=== PATIENT | male | born 1985 | race Caucasian/White ===

== ENCOUNTER 2016-09-15 15:45 | Emergency (ER) | payer MEDICAID ==
[2016-09-15] MEDS ORDERED: Sodium Chloride 0.9% 1,000 ML IV ONE (16:05)
[2016-09-15] MEDS ORDERED: Morphine Sulfate 4 mg/mL 1mL Syr IVP ONE (16:06)
--- NOTE | 2016-09-15 16:07 | ED Physician Chart ---
Chief Complaint/HPI - Patient Information Date Seen:: 09/15/16 Time Seen:: 16:02 Chief Complaint:: ACUTE HEADACHE STARTED ABOUT 1 PM History of Present Illness:: Patient states he had acute onset of a generalized headache at 1 PM today. Initially the pain was occipital and then it migrated to the frontal sinus area. Patient denies any recent head injury. The patient has identical headaches that started when he was 9 years old. Since then he has had the same headaches at about 6 month intervals. Patient has had no recent fever, chills or diaphoresis. The headache was accompanied by nausea and 3 episodes of vomiting. She denies any abdominal pain. The patient sees flashing lights they come on just prior to the headache. He rates the severity of the pain as a 9/10 and he describes the pain as throbbing. No motor or sensory complaints. Historian:: Patient Review of Systems - Review of Systems General/Constitutional: No fever, No chills, No diaphoresis, No edema Skin: No skin lesions, No rash, No bruising Head: Headache, No light-headedness Eyes: No loss of vision, No diplopia, Other (patient gets flashing lights prior to the headache.) ENT: No earache, No sore throat, No tinnitus Neck: No neck pain, No stiffness, Mass noted Cardio Vascular: No chest pain, No palpitations, No edema Pulmonary: No SOB, No cough, No sputum, Other (no hemoptysis.) GI: Nausea, Vomiting (3 prior to arrival at the hospital.) G/U: No dysuria, No frequency, No hematuria Musculoskeletal: No bone or joint pain, No back pain, No muscle pain Endocrine: No polyuria, No polydipsia Psychiatric: No prior psych history, No depression, No anxiety, No suicidal ideation Hematopoietic: No bruising, No lymphadenopathy Allergic/Immuno: No urticaria, No angioedema Neurological: No syncope, No weakness, No headache, No seizure, No vertigo Past Medical History - Past Medical History Past Medical History: Other (history of migraine headaches.) Social History: Non Smoker (occasional alcohol use. No use of illicit drugs. and lives with his family.), Employed Family Medical History - Family Member Mother History Unknown: Yes Physical Exam - Physical Examination General/Constitutional: Awake, Well-developed, well-nourished, Alert, Non-toxic appearing, Ambulatory Head: Atraumatic Eyes: Lids, conjuctiva normal, PERRL, EOMI Other Eyes comments:: No retinal hemorrhages or exudates. Sharp disc margins. Skin: No rash, No skin lesions, No ecchymosis, Well hydrated, No lymphadenopathy ENMT: External ears, nose nl, Lips, teeth, gums nl, Oropharynx nl, Tonsils nl Other ENMT comments:: No facial asymmetry. The tongue protrudes in the midline. Neck: Nontender, Full ROM w/o pain, No JVD, No nuchal rigidity, No mass, No stridor Respiratory: Nl effort/Exclusion, Clear to Auscultation, No Wheeze/Rhonchi/Rales Cardio Vascular: RRR, No murmur, gallop, rubs, NL S1 S2 Other Cardio Vascular comments:: Pulses all 4 extremities. GI: No tenderness/rebounding/guarding, No organomegaly, No hernia, Normal BS's, Nondistended, No mass/bruits, No McBurney tenderness : No CVA tenderness, No discharge Extremities: No tenderness or effusion, Full ROM, normal strength in all extremities, No edema, Normal digits & nails Other Extremities comments:: Excellent strength in all 4 extremities. Neuro/Psych: Alert/oriented, Normal sensory exam, Normal motor strength, Judgement/insight normal, Mood normal, Normal gait, No focal deficits Other Neuro/Psych comments:: Normal finger-nose and normal alternating hand movements. Gait is normal. Misc: Normal back, No paraspinal tenderness Labs/Radiology/EKG Results - Lab Results Results: No laboratory or radiology studies were indicated. Assessment - Assessment General Assessment: CASE SUMMARY: This 30 year old male presents with a severe headache that stared while at work. The headache was proceeded by visual [place] and accompanied by nausea and 3 episodes of emesis. The patient has a past history of multiple identical episodes. The physical exam showed no cervical stiffness. The neurologic exam was completely normal. The patient's symptoms were addressed with IV normal saline, IV zofran and IV morphine. The patient had a good response and he was discharged home with his . He was advised to return for any new onset of neurologic symptoms. MDM DDX of Severe Headache: NOT Subarachnoid hemorrhage based on the patient's history of prior episodes and physical examination. NOT meningitis base on his history and physical exam. NOT blunt head injury based on history and exam. NOT CO poisoning based on history and exam. NOT Vertebral artery dissection based on history and exam. ED Septic Shock - . Is Septic Shock (SBP<90, OR Lactate>4 mmol\L) present?: No ED Discharge Plan - Patient Disposition Admit/Discharge/Transfer: PT DISCHARGED HOME Condition at Disposition: Stable Instructions: Migraine Headache, [id number] Forms: Work Release Form
== END 2016-09-15 17:30 | disposition home or self-care (01) ==
LOC: ER 15:45
DX: R51 Headache (principal); R11.2 Nausea with vomiting, unspecified
CPT/HCPCS: 99284; 96374; 96375; J2405; J2270; Z7502

== ENCOUNTER 2018-01-03 19:00 | Inpatient (IN) | payer MEDICAID ==
--- NOTE | 2018-01-03 19:25 | ED Physician Chart ---
ED Chief Complaint/HPI - Patient Information Date Seen:: 01/03/18 Time Seen:: 19:21 Chief Complaint:: dizziness eadache History of Present Illness:: 32 yr 0ld male with hx of migraines who woke up this am with nv and headache no facial droop or visual loss Allergies:: Allergies Allergy/AdvReac Type Severity Reaction Status Date / Time No Known Allergies Allergy Verified 09/15/16 16:02 Vitals:: Vital Signs - 8 hr 01/03/18 19:12 Temp 98.2 F HR 91 RR 17 BP 120/75 O2 Sat % 98 ED Review of Systems - Review of Systems General/Constitutional: Fever, Chills Skin: No skin lesions Head: Headache Eyes: No loss of vision ENT: No earache Neck: Neck pain, No swelling Cardio Vascular: No chest pain Pulmonary: No SOB GI: Nausea, Vomiting, No diarrhea G/U: No dysuria Musculoskeletal: No bone or joint pain Endocrine: No polyuria Psychiatric: No prior psych history, No depression Hematopoietic: No bruising Allergic/Immuno: No urticaria Neurological: No syncope ED Past Medical History - Past Medical History Past Medical History: No significant medical hx Family Medical History - Family Member Mother History Unknown: Yes ED Physical Exam - Physical Examination General/Constitutional: Alert Head: Atraumatic Eyes: Lids, conjuctiva normal Skin: Nl inspection ENMT: External ears, nose nl Neck: No JVD Respiratory: Nl effort/Exclusion Cardio Vascular: No murmur, gallop, rubs GI: No organomegaly : No CVA tenderness Extremities: No tenderness or effusion Neuro/Psych: Alert/oriented Misc: Normal back ED Assessment - Assessment General Assessment: dizziness headache ED Septic Shock - . Is Septic Shock (SBP<90, OR Lactate>4 mmol\L) present?: No - <6hrs of presentation: Vital Signs: Vital Signs - 8 hr 01/03/18 19:12 Temp 98.2 F HR 91 RR 17 BP 120/75 O2 Sat % 98 ED Reassessment (Disposition) - Reassessment Reassessment Condition:: Improved - Diagnosis Diagnosis:: dizziness headache - Patient Disposition Discharge/Transfer:: Home Condition at Disposition:: Stable
[2018-01-03 19:50] LABS: URINE SOURCE CLEAN C
[2018-01-03 19:50] LABS: BASOPHILE ABSOLUTE 0.2 Th/cumm (0-0.2); HEMATOCRIT 50.9 % (41.0-60); LYMPHOCYTE ABSOLUTE 0.7 Th/cmm (1.5-3.0); MEAN CELL VOLUME 90.1 fl (80-99); MEAN CORPUSCULAR HGB CONC 33.3 pg (28.0-36.0); MEAN PLATELET VOLUME 11.1 fl; MONOCYTE ABSOLUTE 0.1 Th/cmm (0.3-1.0); PLATELET COUNT 215 Th/cmm (150-400); RED BLOOD COUNT 5.65 Mil/cmm (4.30-5.70); RED CELL DISTRIBUTION WIDTH 12.2 % (11.5-20.0)
[2018-01-03 19:54] LABS: URINE BILIRUBIN NEGATIVE (NEGATIVE); URINE BLOOD NEGATIVE (NEGATIVE); URINE GLUCOSE (UA) NEGATIVE (NEGATIVE); URINE KETONE NEGATIVE (NEGATIVE); URINE LEUKOCYTE ESTERASE NEGATIVE (NEGATIVE); URINE NITRATE NEGATIVE (NEGATIVE); URINE PROTEIN NEGATIVE (NEGATIVE); URINE UROBILINOGEN 0.2 E.U./dL (0.2 - 1.0)
[2018-01-03 19:56] LABS: URINE CLARITY CLEAR (CLEAR); URINE COLOR YELLOW; URINE MICROSCOPIC INDICATED? YES
[2018-01-03 20:03] LABS: URINE BACTERIA 1+ /hpf (NONE SEEN); URINE EPITHELIAL CELLS FEW /lpf (FEW); URINE RBC 0-2 /hpf (0-5)
[2018-01-03 20:05] LABS: ALB/GLOB RATIO 1.6 (1.0-1.8); ALBUMIN 4.9 gm/dL (4.2-5.5); ALKALINE PHOSPHATASE 68 U/L (34-104); ANION GAP 14.7 (7.0-16.0); BILIRUBIN,TOTAL 0.5 mg/dL (0.3-1.0); BUN - UREA NITROGEN 18 mg/dL (7-25); CALCIUM SERUM 9.8 mg/dL (8.6-10.3); CARBON DIOXIDE 23.3 mEq/L (21.0-31.0); CHLORIDE 104 mEq/L (98-107); CREATININE - SERUM 0.8 mg/dL (0.7-1.3); GFR AFRICAN-AMERICAN > 60.0 ml/min (>90); GFR NON AFRICAN-AMERICAN > 60.0 ml/min; GLUCOSE 117 mg/dL (70-105); SGOT 18 U/L (13-39); SGPT/ALT 25 U/L (7-52); SODIUM SERUM 138 mEq/L (136-145); TOTAL PROTEIN,SERUM 7.9 gm/dL (6.0-8.3)
[2018-01-03 20:09] LABS: BAND NEUTROPHILE 4 % (0-10); LYMPHOCYTE 6 % (20-50); NEUTROPHILS 88 % (40-80)
[2018-01-03 20:10] LABS: MONOCYTE 2 % (2-10)
[2018-01-03] MEDS ORDERED: Piperacillin Sodium/Tazobact 3.375 gm Vial IV ONE (20:20)
[2018-01-03] MEDS ORDERED: Sodium Chloride 0.9% 1,000 ML IV ONE (20:24)
[2018-01-04 00:40] VITALS: BP 112/61
--- NOTE | 2018-01-04 08:42 | Diagnostic Imaging Report ---
CT scan of the brain without contrast History: Dizziness Total DLP equals 623 CTDI equals 34.1 Axial sections were obtained from the base of the skull to the vertex. There is a normal ventricular system size. No focal parenchymal lesions are seen. No evidence of any mass effect or shift of midline structures. No extra-axial masses or abnormal fluid collections. Impression: Negative examination
--- NOTE | 2018-01-04 08:49 | Diagnostic Imaging Report ---
Portable chest x-ray History: Shortness of breath Allowing for portable technique the heart size is normal. No focal pulmonary parenchymal processes. No hilar or mediastinal abnormalities. Impression: No acute abnormalities.
--- NOTE | 2018-01-04 21:14 | History & Physical ---
ADMIT DATE: CHIEF COMPLAINT: Intractable headache. HISTORY OF PRESENT ILLNESS: The patient is a 32-year-old male, who presented to the Emergency Room with intractable headache, evaluated by the ER physician. Initial workup significant for headaches and leukocytosis. The patient denies any fever, chills, nausea, or vomiting. The patient admitted to the hospital for more advanced treatment. PAST MEDICAL HISTORY: Negative. PAST SURGICAL HISTORY: Negative. ALLERGIES: None. MEDICATIONS: None. SOCIAL HISTORY: Non-smoker, no alcohol, no drugs. FAMILY HISTORY: Noncontributory. REVIEW OF SYSTEMS: IMMUNO SYSTEM: No history of chronic immune disorder. CARDIOVASCULAR SYSTEM: No coronary artery disease. ENDOCRINE SYSTEM: No diabetes or thyroid problem. GASTROINTESTINAL SYSTEM: No upper or lower gastrointestinal bleed. NEUROLOGICAL SYSTEM: Seizure disorder. SKELETOMUSCULAR SYSTEM: No muscular dystrophy. HEMATOLOGIC SYSTEM: No bleeding tendencies. RESPIRATORY SYSTEM: No asthma. GENITOURINARY: No dysuria or hematuria.. PHYSICAL EXAMINATION: GENERAL: He is awake, alert, oriented. VITAL SIGNS: Temperature is 98.2, heart rate is 65, blood pressure 97/53. HEENT: Normocephalic. Pupils reactive to light and accommodation. Sclerae clear. NECK: Supple. Negative for lymphadenopathy, JVD or bruit. CHEST: Entry of air bilaterally normal. No rhonchi or wheezing. HEART: S1, S2 normal. No gallop rhythm. ABDOMEN: Soft, bowel sounds positive. EXTREMITIES: No edema. NEUROLOGIC: He is awake, alert, oriented. No focal motor deficits. Cranial nerves 2-12 is intact. LABORATORY DATA: White blood 16, hemoglobin 17, hematocrit 50.9, platelets ____. Sodium 138, potassium 4, BUN 18, creatinine 0.8. ASSESSMENT: 1. Intractable headache. 2. Leukocytosis. PLAN: The patient in the hospital under Dr. Aj's service. Start him on a regular diet. Toradol 15 mg IV q. 6 hours p.r.n. for headache. The patient is a full code. JOB# [id number]
--- NOTE | 2018-01-30 22:31 | Discharge Summary ---
DATE OF DISCHARGE: 01/04/2018 FINAL DIAGNOSES: 1. Intractable headache. 2. Leukocytosis. REVIEW OF HISTORY: The patient is a 32-year-old male who presented to the Emergency Room with intractable headache, evaluated by the ER physician, initial workup significant for leukocytosis. The patient had CT of the head, which was negative. The patient denies any fever or chills. PHYSICAL EXAMINATION: VITAL SIGNS: Temperature 98.2, heart rate 65, blood pressure 97/53. CHEST: Clear to auscultation. ABDOMEN: Soft, bowel sounds positive. LABORATORY DATA: White blood 16, hemoglobin 17, hematocrit 50.9, platelet 226. Sodium 138, potassium 4, BUN 18, creatinine 0.8. The patient admitted to the hospital, was started on IV fluid, IV antibiotic and IV Toradol. COURSE OF HOSPITALIZATION: During hospitalization, the patient remained stable clinically on 01/04/2018. The patient was feeling well, no chest pain, no shortness of breath, no nausea, no vomiting, no headache. DISPOSITION: The patient discharged home on the 01/04/2018 to follow up with primary physician as outpatient. CONDITION ON DISCHARGE: Stable. MEDICATIONS: Follow discharge reconciliation. [facility]# [id number]
== END 2018-01-04 19:10 | disposition home or self-care (01) | DRG 723 ==
LOC: ER 19:00 → EDBD 19:00 → MSI 23:10
PROVIDERS: ADMIT Family Medicine; ATTEND Family Medicine
DX: B34.9 Viral infection, unspecified (principal); D72.829 Elevated white blood cell count, unspecified; G43.909 Migraine, unspecified, not intractable, without status migrainosus; R42 Dizziness and giddiness
CPT/HCPCS: 36415-UA; 70450-TC; 71045-TC; 80053-TC; 81001-TC; 83605; 85007-TC; 85025-TC; 93005; 96375; J1885; J2405; J2543; J3370; J7030; Z7610

== ENCOUNTER 2018-09-15 08:01 | Emergency (ER) | payer MEDICAID ==
--- NOTE | 2018-09-15 08:11 | ED Physician Chart ---
ED Chief Complaint/HPI - Patient Information Date Seen:: 09/15/18 Time Seen:: 08:03 Chief Complaint:: Recurrent nausea/vomiting. History of Present Illness:: Pt came in by private auto because of recurrent nausea/vomiting for 3 days with last episode at about 0400 today. Vomitus consists of gastric content. No hematemesis. No fever. Pt has had abdominal pain, characterized as burning, intermittent, and localized at epigastrium. Last BM yesterday morning that was normal without hematochezia or melena. Allergies:: Allergies Allergy/AdvReac Type Severity Reaction Status Date / Time No Known Allergies Allergy Verified 09/15/16 16:02 Vitals:: see Nurse Note. Historian:: Patient Family MD/PCP:: Dr. Ricci LMP:: N/A Review:: Nurse's Note Reviewed ED Review of Systems - Review of Systems General/Constitutional: No fever, No weight loss, No weakness, Loss of appetite Skin: No skin lesions, No rash, No bruising Head: Headache (transient frontal headache at about 0500), No light-headedness Eyes: No loss of vision, No pain, No diplopia ENT: No earache, No nasal drainage, No sore throat Neck: No neck pain, No stiffness Cardio Vascular: No chest pain, No edema Pulmonary: No SOB, No cough, No wheezing GI: Vomiting, No diarrhea, Pain, No melena, No hematochezia, No constipation, No hematemesis G/U: No dysuria, No hematuria Musculoskeletal: No muscle pain Psychiatric: No prior psych history Hematopoietic: No bruising, No lymphadenopathy Allergic/Immuno: No urticaria, No angioedema Neurological: No syncope, No focal symptoms, No weakness, No paresthesia, Headache (transient, see HPI.), No confusion ED Past Medical History - Past Medical History Past Medical History: Other (migraine) Family History: Cancer (mother had uterine CA.) Social History: Non Smoker, No Alcohol (occasional), , Employed, Other ( lives with his .) Surgical History: None Psychiatricy History: None Medication: Reviewed Family Medical History - Family Member Mother History Unknown: Yes ED Physical Exam - Physical Examination General/Constitutional: Awake, Well-developed, well-nourished (male), Alert, No distress, Non-toxic appearing, Ambulatory Other Gen/Cons comments:: Breathes comfortably, speaks clearly, and interacts appropriately. Head: Atraumatic Eyes: Lids, conjuctiva normal, PERRL, EOMI Skin: Nl inspection, No ecchymosis, No lymphadenopathy ENMT: External ears, nose nl, Nasal exam nl, Oropharynx nl, Tonsils nl Neck: Nontender, Full ROM w/o pain, No nuchal rigidity, No mass Respiratory: Nl effort/Exclusion, Clear to Auscultation, No Wheeze/Rhonchi/Rales Cardio Vascular: RRR (HR 62.), No murmur, gallop, rubs GI: No organomegaly, No hernia, Normal BS's, Nondistended, No McBurney tenderness Other GI comments:: Mild tenderness at epigastrium. Soft abdomen. Normoactive BS x 4. No R/G. Rectal exam: deferred per pt's request as he already feels better and after review of CT report. : No CVA tenderness Extremities: No tenderness or effusion, No edema Neuro/Psych: Alert/oriented (oriented x 3), No focal deficits ED Labs/Radiology/EKG Results - Lab Results Results: Laboratory Results - last 24 hr 09/15/18 09/15/18 09/15/18 08:30 08:30 08:30 WBC 3.9 L RBC 4.81 Hgb 15.0 Hct 43.2 MCV 89.8 MCH 31.3 H MCHC Differential 34.8 RDW 12.1 Plt Count 145 L MPV 10.0 Add Manual Diff YES Band Neutrophils % 0 Neutrophils (Manual) 50 Lymphocytes 37 Monocytes 13 H Eosinophils 0 Basophils 0 PT 11.1 INR 1.07 PTT (Actin FS) 27.4 Sodium 139 Potassium 3.9 Chloride 106 Carbon Dioxide 27.6 Anion Gap 9.3 BUN 19 Creatinine 1.0 Est GFR ( Amer) > 60.0 Est GFR (Non-Af Amer) > 60.0 BUN/Creatinine Ratio 19.0 Glucose 107 H Whole Bld Lactic Acid Calcium 9.2 Total Bilirubin 0.6 AST 15 ALT 28 Alkaline Phosphatase 66 Total Protein 6.7 Albumin 4.3 Globulin 2.4 Albumin/Globulin Ratio 1.8 Amylase Lipase 14 Urine Source Urine Color Urine Clarity Urine pH Ur Specific [place] Urine Protein Urine Glucose (UA) Urine Ketones Urine Blood Urine Nitrate Urine Bilirubin Urine Urobilinogen Ur Leukocyte Esterase Urine Opiates Screen Urine Methadone Screen Ur Barbiturates Screen Ur Tricyclics Screen Ur Phencyclidine Scrn Amphetamines Screen U Methamphetamines Scrn U Benzodiazepines Scrn U Cocaine Metab Screen U Cannabinoids Screen 09/15/18 09/15/18 09/15/18 08:30 08:30 09:00 WBC RBC Hgb Hct MCV MCH MCHC Differential RDW Plt Count MPV Add Manual Diff Band Neutrophils % Neutrophils (Manual) Lymphocytes Monocytes Eosinophils Basophils PT INR PTT (Actin FS) Sodium Potassium Chloride Carbon Dioxide Anion Gap BUN Creatinine Est GFR ( Amer) Est GFR (Non-Af Amer) BUN/Creatinine Ratio Glucose Whole Bld Lactic Acid 0.61 Calcium Total Bilirubin AST ALT Alkaline Phosphatase Total Protein Albumin Globulin Albumin/Globulin Ratio Amylase 30 Lipase Urine Source CLEAN C Urine Color YELLOW Urine Clarity SLIGHTLY HAZY Urine pH 7.5 Ur Specific [place] 1.015 Urine Protein NEGATIVE Urine Glucose (UA) NEGATIVE Urine Ketones NEGATIVE Urine Blood NEGATIVE Urine Nitrate NEGATIVE Urine Bilirubin NEGATIVE Urine Urobilinogen 1.0 Ur Leukocyte Esterase NEGATIVE Urine Opiates Screen Urine Methadone Screen Ur Barbiturates Screen Ur Tricyclics Screen Ur Phencyclidine Scrn Amphetamines Screen U Methamphetamines Scrn U Benzodiazepines Scrn U Cocaine Metab Screen U Cannabinoids Screen 09/15/18 09:00 WBC RBC Hgb Hct MCV MCH MCHC Differential RDW Plt Count MPV Add Manual Diff Band Neutrophils % Neutrophils (Manual) Lymphocytes Monocytes Eosinophils Basophils PT INR PTT (Actin FS) Sodium Potassium Chloride Carbon Dioxide Anion Gap BUN Creatinine Est GFR ( Amer) Est GFR (Non-Af Amer) BUN/Creatinine Ratio Glucose Whole Bld Lactic Acid Calcium Total Bilirubin AST ALT Alkaline Phosphatase Total Protein Albumin Globulin Albumin/Globulin Ratio Amylase Lipase Urine Source Urine Color Urine Clarity Urine pH Ur Specific [place] Urine Protein Urine Glucose (UA) Urine Ketones Urine Blood Urine Nitrate Urine Bilirubin Urine Urobilinogen Ur Leukocyte Esterase Urine Opiates Screen NEGATIVE Urine Methadone Screen NEGATIVE Ur Barbiturates Screen NEGATIVE Ur Tricyclics Screen NEGATIVE Ur Phencyclidine Scrn NEGATIVE Amphetamines Screen NEGATIVE U Methamphetamines Scrn NEGATIVE U Benzodiazepines Scrn NEGATIVE U Cocaine Metab Screen NEGATIVE U Cannabinoids Screen NEGATIVE - Radiology Results Results: CT of abdomen/pelvis: No acute abnormalities. Official report per Dr. Anatoliy Julian, radiologist. ED Septic Shock - . Is Septic Shock (SBP<90, OR Lactate>4 mmol\L) present?: No ED Reassessment (Disposition) - Reassessment Reassessment:: 1045 Pt has been repeatedly evaluated. Pt feels much better. No recurrent N/V/ D. No abdominal pain. Lab and CT findings have been reviewed with pt. Pt requests to go home now and does not want further observation/management in hospital. Aftercare instructions have been given. Reassessment Condition:: Improved - Diagnosis Diagnosis:: Acute gastritis. Stable and currently asymptomatic. - Aftercare/Follow up Instructions Aftercare/Follow-Up Instructions:: Refer to Discharge Instructions Notes:: Bed rest for today. Avoid ASA, NSAID's such as Aleve, Motrin. Avoid greasy/spicy food, ethanol, tobacco, etc. Abdominal pain instructions given. F/U with PCP Dr. Ricci in one day for recheck with repeat lab study: CBC, BMP. Return to ER immediately if condition worsens or if any further questions/ problems. Medication Prescribed:: Ranitidine 150 mg tab one tab po q12h D-20 R-0 - Patient Disposition Discharge/Transfer:: Home Time:: 10:55 Condition at Disposition:: Stable, Improved
[2018-09-15 08:38] LABS: RED CELL DISTRIBUTION WIDTH 12.1 % (11.5-20.0)
[2018-09-15 08:50] LABS: INR 1.07 (0.5-1.4)
[2018-09-15 08:54] LABS: ALB/GLOB RATIO 1.8 (1.0-1.8); ALBUMIN 4.3 gm/dL (4.2-5.5); ALKALINE PHOSPHATASE 66 U/L (34-104); ANION GAP 9.3 (7.0-16.0); BILIRUBIN,TOTAL 0.6 mg/dL (0.3-1.0); BUN - UREA NITROGEN 19 mg/dL (7-25); CALCIUM SERUM 9.2 mg/dL (8.6-10.3); CARBON DIOXIDE 27.6 mEq/L (21.0-31.0); CHLORIDE 106 mEq/L (98-107); GFR AFRICAN-AMERICAN > 60.0 ml/min (>90); GFR NON AFRICAN-AMERICAN > 60.0 ml/min; GLUCOSE 107 mg/dL (70-105); LIPASE 14 U/L (11-82); POTASSIUM SERUM 3.9 mEq/L (3.5-5.1); SGOT 15 U/L (13-39); SGPT/ALT 28 U/L (7-52); SODIUM SERUM 139 mEq/L (136-145); TOTAL PROTEIN,SERUM 6.7 gm/dL (6.0-8.3)
[2018-09-15 09:04] LABS: URINE SOURCE CLEAN C
[2018-09-15 09:05] LABS: HEMATOCRIT 43.2 % (41.0-60); MEAN CELL VOLUME 89.8 fl (80-99); MEAN CORPUSCULAR HEMOGLOBIN 31.3 pg (26.0-30.0); MEAN CORPUSCULAR HGB CONC 34.8 pg (28.0-36.0); PLATELET COUNT 145 Th/cmm (150-400); RED BLOOD COUNT 4.81 Mil/cmm (4.30-5.70); WHITE BLOOD COUNT 3.9 Th/cmm (4.8-10.8)
[2018-09-15 09:08] LABS: URINE BILIRUBIN NEGATIVE (NEGATIVE); URINE BLOOD NEGATIVE (NEGATIVE); URINE GLUCOSE (UA) NEGATIVE (NEGATIVE); URINE KETONE NEGATIVE (NEGATIVE); URINE LEUKOCYTE ESTERASE NEGATIVE (NEGATIVE); URINE NITRATE NEGATIVE (NEGATIVE); URINE PH 7.5 (4.6 - 8.0); URINE PROTEIN NEGATIVE (NEGATIVE)
[2018-09-15 09:09] LABS: URINE CLARITY SLIGHTLY HAZY (CLEAR); URINE COLOR YELLOW; URINE MICROSCOPIC INDICATED? NO
[2018-09-15 09:37] LABS: AMPHETAMINE URINE NEGATIVE (NEGATIVE); BARBITURATES URINE NEGATIVE (NEGATIVE); BENZODIAZEPINES QUAL URINE NEGATIVE (NEGATIVE); CANNABINOID THC NEGATIVE (NEGATIVE); COCAINE METABOLITE QUAL URINE NEGATIVE (NEGATIVE); METHADONE URINE NEGATIVE (NEGATIVE); METHAMPHETAMINES QUAL URINE NEGATIVE (NEGATIVE); OPIATES (MORPHINE) QUAL. URINE NEGATIVE (NEGATIVE); PHENCYCLIDINE (PCP) URINE NEGATIVE (NEGATIVE); TRICYCLICS (TCA) QUAL. URINE NEGATIVE (NEGATIVE)
[2018-09-15 09:42] LABS: BAND NEUTROPHILE 0 % (0-10); BASOPHIL 0 % (0-3); EOSINOPHIL 0 % (0-5); LYMPHOCYTE 37 % (20-50); MONOCYTE 13 % (2-10); NEUTROPHILS 50 % (40-80)
--- NOTE | 2018-09-15 10:11 | Diagnostic Imaging Report ---
CT scan abdomen and pelvis without intravenous contrast HISTORY: Pain Total DLP equals 505 CTDI equals 9.6 Axial sections were obtained from the xiphoid process down to the pubic symphysis. The liver exhibits a homogeneous parenchyma. No focal lesions. The spleen appears normal. No focal abnormality seen within the pancreas. Bilateral renal cysts. No hydronephrosis. The exam of the pelvis demonstrates preservation of normal fat planes. No abnormal soft tissue masses or abnormal fluid collections. No definite abnormality seen in the region of the appendix. IMPRESSION: 1. No acute abnormalities
== END 2018-09-15 11:15 | disposition home or self-care (01) ==
LOC: ER 08:01
DX: K29.00 Acute gastritis without bleeding (principal)
CPT/HCPCS: 99284; 96374; 74176; 36415; 83605; 80307; 85007; 85025; 85610; 81003; 82150; 83690; 80053; 87040; J3490